=== PATIENT | male | born 1985 | race Caucasian/White ===

== ENCOUNTER 2017-03-27 10:56 | Emergency (ER) | payer OTHER ==
[~2017-03-27] VITALS: Ht 182.9 cm; Wt 113.4 kg
--- NOTE | 2017-03-27 11:26 | PHYS DOC ---
Past History Additional Past Medical Histor: sleep apnea Past Surgical History: No Surgical History Smoking: Non-smoker Alcohol Use: None Drug Use: None Adult General Chief Complaint Chief Complaint: COUGH [facility] 32-year-old nonsmoking male patient complaining of cough and nasal congestion with intermittent fever for the last 5 days. Patient complaining of intermittent productive cough with clear sputum without sore throat, vomiting, diarrhea. Patient states he had sick contacts at home. Review of Systems Review of Systems Constitutional: Ports fever Eyes: Denies change in visual acuity, redness, or eye pain [] HENT: Reports nasal congestion Respiratory:Reports cough, denies shortness of breath [] Cardiovascular: No additional information not addressed in HPI [] GI: Denies abdominal pain, nausea, vomiting, bloody stools or diarrhea [] : Denies dysuria or hematuria [] Musculoskeletal: Denies back pain or joint pain [] Integument: Denies rash or skin lesions [] Neurologic: Denies headache, focal weakness or sensory changes [] Endocrine: Denies polyuria or polydipsia [] All other systems were reviewed and found to be within normal limits, except as documented in this note. Allergies Allergies Allergies Coded Allergies Type Severity Reaction Last Updated Verified No Known Drug Allergies 03/27/17 No Physical Exam Physical Exam Constitutional: Well developed, well nourished,mild distress, non-toxic appearance. [] HENT: Normocephalic, atraumatic, bilateral external ears normal, oropharynx moist, no oral exudates, nose normal. [] Eyes: PERRLA, EOMI, conjunctiva normal, no discharge. [] Neck: Normal range of motion, no tenderness, supple, no stridor. [] Cardiovascular:Heart rate regular rhythm, no murmur [] Lungs & Thorax: Bilateral breath sounds clear to auscultation [] Abdomen: Bowel sounds normal, soft, no tenderness, no masses, no pulsatile masses. [] Skin: Warm, dry, no erythema, no rash. [] Back: No tenderness, no CVA tenderness. [] Extremities: No tenderness, no cyanosis, no clubbing, ROM intact, no edema. [] Neurologic: Alert and oriented X 3, normal motor function, normal sensory function, no focal deficits noted. [] Psychologic: Affect normal, judgement normal, mood normal. [] Current Patient Data Vital Signs Vital Signs Date Time Temp Pulse Resp B/P (MAP) Pulse Ox O2 Delivery O2 Flow Rate FiO2 03/27/17 11:10 98.2 85 18 98 Room Air EKG EKG [] Radiology/Procedures Radiology/Procedures [] [address] [address] IMAGING REPORT Signed PATIENT: JAYLIN PARNELL ACCOUNT: [id number] : 1985 LOCATION: ER AGE: 32 SEX: M EXAM STATUS: REG ER ORD. PHYSICIAN: LIMA RICE MD REASON: cough and fever PROCEDURE: CHEST PA & LATERAL CHEST PA LATERAL History: COUGH, FEVER OF 104 LAST SUNDAY Comparison: None. Findings: 2 views of the chest are submitted. There is no significant pleural fluid or pneumothorax. Heart size is within normal limits. There is no peripheral lobar consolidation. The is likely some perihilar bronchial wall thickening, also very mild hazy right perihilar opacity. Impression: 1. There is no lobar consolidation. There is likely perihilar bronchial wall thickening and very mild hazy right perihilar opacity which can be associated with atypical or viral infectious etiologies. Electronically signed by: Heraclio Faria MD (03/27/2017 12:01 PM) [facility] DICTATED AND SIGNED BY: HERACLIO FARIA MD DATE: 03/27/17 1159 CC: LAURA HARO; LIMA RICE MD ~ Course & Med Decision Making Course & Med Decision Making Pertinent Labs and Imaging studies reviewed. (See chart for details) []Evaluation of patient in ER showed 32-year-old male patient with cough and fever for 5 days. Patient had negative flu test. Chest X-ray was unremarkable. Discharge patient home with diagnoses of bacterial upper respiratory infection. I've spoken with the patient and/or caregivers. I've explained the patient's condition, diagnosis and treatment plan based on information available to me at this time. I've answered the patient's and/or caregivers questions and addressed any concerns. The patient and/or caregivers have a good understanding the patient's diagnosis, condition and treatment plan as can be expected at this point. Vital signs have been stabilized. The patient's condition is stable for discharge from the emergency department. The patient will pursue further outpatient evaluation with her primary care provider or other designated consulting physician as outlined in the discharge instructions. Patient and/or caregivers are agreeable to this plan of care and follow-up instructions have been explained in detail. The patient and/or caregivers have received these instructions in written format and expressed understanding of these discharge instructions. The patient and her caregivers are aware that if any significant change in condition or worsening of symptoms should prompt him to immediately return to this of the closest emergency department. If an emergent department is not readily available I would encourage him to call 911. [place] Disclaimer Dragon Disclaimer This electronic medical record was generated, in whole or in part, using a voice recognition dictation system. Departure Departure: Impression: Primary Impression: Bacterial upper respiratory infection Disposition: HOME, SELF-CARE Condition: STABLE Referrals: LAURA HARO (PCP) Patient Instructions: Upper Respiratory Infection, Adult Additional Instructions: Drink plenty of liquids Follow-up with your primary care physician in 3-5 days Return to ER if not getting better Scripts Albuterol Sulfate (PROAIR HFA INHALER) 8.5 Gm Hfa.aer.ad 2 PUFF INH PRN Q6HRS Y for SHORTNESS OF BREATH, #1 INHALER 0 Refills Prov: LIMA RICE MD 03/27/17 Hydrocodone/Chlorphen P-Stirex (Tussionex Pennkinetic Susp) 115 Ml Ana.er.12h 5 ML PO BID, #120 ML Prov: LIMA RICE MD 03/27/17 Azithromycin (ZITHROMAX) 250 Mg Tablet 1 PKG PO UD, #1 PKG Prov: LIMA RICE MD 03/27/17 LIMA RICE MD Mar 27, 2017 11:26
[2017-03-27] MEDS ORDERED: IPRATRPIUM/ALBUTEROL 0.5/2.5MG 3 ML NEBU. NEB ONE (11:30)
[2017-03-27 11:42] LABS: INFLUENZA A PATIENT NEGATIVE (NEGATIVE); INFLUENZA B PATIENT NEGATIVE (NEGATIVE)
[2017-03-27] MEDS ORDERED: AZIT250T PO (12:02)
[2017-03-27] MEDS ORDERED: HYDR115S2 PO (12:02)
[2017-03-27] MEDS ORDERED: ALBU8.5H8 INH (12:02)
--- NOTE | 2017-03-27 12:04 | RAD ---
CHEST PA LATERAL History: COUGH, FEVER OF 104 LAST SUNDAY Comparison: None. Findings: 2 views of the chest are submitted. There is no significant pleural fluid or pneumothorax. Heart size is within normal limits. There is no peripheral lobar consolidation. The is likely some perihilar bronchial wall thickening, also very mild hazy right perihilar opacity. Impression: 1. There is no lobar consolidation. There is likely perihilar bronchial wall thickening and very mild hazy right perihilar opacity which can be associated with atypical or viral infectious etiologies. Electronically signed by: Law Faria MD (03/27/2017 12:01 PM) [facility]
[2017-03-27 12:34] VITALS: BP 130/72
== END 2017-03-27 12:36 | disposition home or self-care (01) ==
LOC: ER 10:56
DX: J06.9 Acute upper respiratory infection, unspecified (principal); G47.30 Sleep apnea, unspecified
CPT/HCPCS: 71046; 87804; 99285; J7620

== ENCOUNTER → 2018-07-31 | Outpatient (CLI) | payer OTHER ==
[~2018-07-31] MED LIST: ALBU2.5V8 INH; AZIT250T PO; BUPIVACAINE-EPI 0.25%-1:200000 MPF 30 ML VIAL. ONE; HYDR115S2 PO; MELO15TA23 PO
[2018-07-31 13:03] VITALS: BP 131/66
--- NOTE | 2018-07-31 13:04 | PDOC4 ---
Operative Report DATE 07/31/2018 Preop Diagnosis Posterior neck mass and mid back mass Post-op Diagnosis Same Operation Performed Excision of masses. Patient is a 33-year-old and was complained of a mass on the posterior neck as well as one on the lower mid back procedure of excision was explained to the patient detail risk benefits were also discussed including bleeding infection alternatives to this procedure also discussed the patient is seemed to understand fiona verbal and written consent to have the procedure performed per patient was taken to the minor room placed in the prone positioning areas were prepped and draped usual sterile fashion with ChloraPrep both areas were injected with quarter percent Marcaine with epinephrine posterior neck mass incision was made 15 blade scalpel was carried down through the tissue the mass was excised proximally 1 cm appeared to be sebaceous cyst wound was closed in a single layer for septic and a Monocryl. The mid back mass again was injected quarter percent Marcaine with epinephrine once was no size 15 blade scalpel was used to make an incision the mass was excised and appeared to be a sebaceous cyst approximate 1 cm wound was then closed in a single layer 4-0 Monocryl Mastisol Steri-Strips and island dressings were applied. Patient tolerated proce dure well was discharged home in stable condition. Surgeon Shai ANESTHESIA PROPOSED: LOCAL Blood Loss 5 mL Specimen Posterior neck mass and mid back mass Complications None MARIA GANT MD Jul 31, 2018 13:04
--- NOTE | 2018-07-31 13:05 | DISCH ---
DISCHARGE INSTRUCTIONS-DC Condition on Discharge Condition on Discharge: Stable Activity after Discharge Activity Instructions for Disc: Avoid exertion Diet after Discharge Diet after Discharge: Regular Wound/Incision Care Other wound/incision instructi: Jaquelin shower in 24 hours Contacting the DRMichael after DC Call your doctor for: If your condition worsens Follow-Up Follow up with: Dr. Gant in 3 weeks MARIA GANT MD Jul 31, 2018 13:05
--- NOTE | 2018-08-05 09:06 | PATHOLOGY ---
[facility] Accession Number: [id number] . 01 Material submitted: . PART A: neck - NECK POSTERIOR MASS. Modifiers: posterior PART B: back - MID BACK MASS. Modifiers: mid . 01 Clinical history: . Sebaceous cyst posterior neck and mid back cyst. . 02 Diagnosis: A. Segments of skin and fibrous tissue, posterior neck mass: - Epidermal inclusion cyst. . B. Skin, mid back mass: - Epidermal inclusion cyst, focally ruptured, with acute and chronic inflammation and focal foreign body giant cell reaction. . (JPM:leticia; 08/02/2018) R/08/02/2018 . 02 Comment: There is no evidence of malignancy. (JPM:leticia; 08/02/2018) . 02 Electronically signed: . Gelacio Menchaca MD, Pathologist NPI- [id number] . 01 Gross description: . A. Received in formalin labeled "Ant Mcdonnell, neck posterior mass" is a 2.4 x 1.3 x 0.5 cm aggregate of coker-white rubbery tissue and grumous material. The specimen is serially sectioned and submitted entirely in cassette A1. . B. Received in formalin labeled "Ant Mcdonnell, mid back mass" is an irregular fragment of coker-white rubbery tissue and skin measuring 1.3 x 1.3 x 0.4 cm. Upon sectioning, a cystic structure containing coker-white grumous material is present, measuring 0.8 cm in greatest dimension. The specimen is submitted entirely in cassette B1. ([facility] [place]; 08/01/2018) SYC/SYC . 02 Pathologist provided ICD-10: L72.0 . 02 CPT . 453579, 827030 Specimen Comment: A courtesy copy of this report has been sent to Specimen Comment: [phone], . Specimen Comment: Report sent to / DR HARO Specimen Comment: A duplicate report has been generated due to demographic updates. Performed at: 01 [facility] [address], [place] [id number] MD Tonny Cast MD Phone: [phone] Performed at: 02 [facility] [address] [place], [place] [id number] MD Gelacio Menchaca MD Phone: [phone]
== END ==
LOC: SURG 10:40
PROVIDERS: ATTEND Surgery
DX: L72.0 Epidermal cyst (principal); M54.5 Low back pain; Z79.899 Other long term (current) drug therapy; Z98.890 Other specified postprocedural states
CPT/HCPCS: 11402; 11442; J3490; 88304